=== PATIENT | male | born 1965 | race Caucasian/White ===

== ENCOUNTER 2022-09-10 07:07 | Day surgery (SDC) | payer OTHER ==
[~2022-09-10] VITALS: Ht 167.6 cm; Wt 109.1 kg
[2022-09-10] MEDS ORDERED: ALBUTEROL SULFATE 2.5 MG/0.5 ML NEB SOLUTION NEB ONE (07:08)
[2022-09-10] MEDS ORDERED: LIDOCAINE 2% 11 ML JELLY TP ONE (07:08)
[2022-09-10] MEDS ORDERED: LIDOCAINE 4% 50 ML SOLUTION TP ONE (07:08)
[2022-09-10] MEDS ORDERED: BENZOCAINE 20% 50 MCG/SPRAY 57 GM TP ONE (07:08)
[2022-09-10] MEDS ORDERED: SODIUM CHLORIDE 0.9% 1,000 ML ONE (07:16)
[2022-09-10] MEDS ORDERED: TIOT185 IH (08:04)
[2022-09-10 08:07] LABS: GLUCOMETER DEV NAME(LOC) SDS.
[2022-09-10] MEDS ORDERED: PANT40TA54 PO (08:07)
[2022-09-10] MEDS ORDERED: HYDR12.54 PO (08:08)
[2022-09-10] MEDS ORDERED: MONT-35 PO (08:09)
[2022-09-10] MEDS ORDERED: ROSU20TA73 PO (08:10)
[2022-09-10] MEDS ORDERED: BACL20TA PO (08:12)
[2022-09-10] MEDS ORDERED: MIDAZOLAM HCL 2 MG/2 ML VIAL ONE (08:13)
[2022-09-10] MEDS ORDERED: EMPA25TA3 PO (08:13)
[2022-09-10] MEDS ORDERED: FentaNYL CITRATE PF 100 MCG/2 ML VIAL ONE (08:13)
[2022-09-10] MEDS ORDERED: CELE200 PO (08:13)
[2022-09-10] MEDS ORDERED: METF-283 PO (08:15)
[2022-09-10] MEDS ORDERED: AZEL137S8 NASAL (08:15)
[2022-09-10] MEDS ORDERED: GABA-1181 PO (08:16)
[2022-09-10] MEDS ORDERED: SODIUM CHLORIDE 0.9% 1,000 ML IV ONE (09:00)
[2022-09-10 09:30] VITALS: PULSE 79; RESP 20; O2SAT 99
[2022-09-10] MEDS ORDERED: MethylPREDNISolone SOD SUCC 125 MG/2 ML VIAL IVP ONE (09:30)
== END 2022-09-10 11:10 | disposition home or self-care (01) ==
LOC: SURGERY 07:07
PROVIDERS: ATTEND Internal Medicine Critical Care Medicine
DX: J38.4 Edema of larynx (principal); B37.0 Candidal stomatitis; Z79.899 Other long term (current) drug therapy; I10 Essential (primary) hypertension; E11.9 Type 2 diabetes mellitus without complications; Z98.890 Other specified postprocedural states
CPT/HCPCS: 31623; 88112; 82962; 87206; 87101; 87220; 87070; 87015; 31624; 94640; 71045; J3010; J2250; J2930; Q9967; J7030; J7613; Z7610